=== PATIENT | female | born 1965 | race African-American/Black ===

== ENCOUNTER 2020-04-16 14:08 | Outpatient (REF) | payer MEDICAID, SELFPAY | END 2020-04-16 14:09 | disposition home or self-care (01) | LOC: HO.LAB 14:08 | PROVIDERS: Visit Provider Internal Medicine | DX: Z20.828 Contact with and (suspected) exposure to other viral communicable diseases (principal) | CPT/HCPCS: C9803; U0003 ==

== ENCOUNTER 2020-04-23 10:47 | Outpatient (REF) | payer MEDICAID, SELFPAY | END 2020-04-23 10:48 | disposition home or self-care (01) | LOC: HO.LAB 10:47 | PROVIDERS: Visit Provider Internal Medicine | DX: Z20.828 Contact with and (suspected) exposure to other viral communicable diseases (principal) | CPT/HCPCS: C9803; U0003 ==

== ENCOUNTER 2020-05-08 09:00 | Outpatient (REF) | payer MEDICAID, SELFPAY | END 2020-05-08 09:01 | disposition home or self-care (01) | LOC: HO.LAB 09:00 | PROVIDERS: Visit Provider Internal Medicine | DX: Z20.828 Contact with and (suspected) exposure to other viral communicable diseases (principal) | CPT/HCPCS: C9803; U0003 ==

== ENCOUNTER 2020-07-03 09:35 | Outpatient (REF) | payer MEDICAID, SELFPAY ==
--- NOTE | 2020-07-03 | MM_ITS ---
EXAMINATION: MM SCREENING DIGITAL BREAST TOMOSYNTHESIS, BILATERAL CLINICAL INFORMATION: Screening. Asymptomatic. The lifetime risk of breast cancer based on the Tyrer-Cuzick Model is 6%. COMPARISON: Mammography: 04/14/2018, 02/24/2017, 01/11/2016 TECHNIQUE: Digital breast tomosynthesis is performed in both the craniocaudal and mediolateral oblique views along with computer-aided detection (CAD). Synthesized 2D images are generated from the tomosynthesis. FINDINGS: There are scattered areas of fibroglandular density (ACR BI-RADS breast composition Category b). There are no significant masses, abnormal calcifications, or other abnormalities. Parenchymal pattern. No significant change from prior studies. MM/MM tomosynthesis screening BI IMPRESSION: No mammographic evidence of malignancy. ASSESSMENT: BI-RADS 1: Negative RECOMMENDATION: Routine annual mammography screening. This patient's information was entered into a reminder system with a target due date for their next mammogram.
== END 2020-07-03 09:36 | disposition home or self-care (01) ==
LOC: HO.MAMMO 09:35
PROVIDERS: Visit Provider Family Medicine
DX: Z12.31 Encounter for screening mammogram for malignant neoplasm of breast (principal)
CPT/HCPCS: 77063; 77067

== ENCOUNTER 2020-08-13 10:28 | Outpatient (REF) | payer MEDICAID, SELFPAY | END 2020-08-13 10:29 | disposition home or self-care (01) | LOC: HO.LAB 10:28 | PROVIDERS: Visit Provider Internal Medicine | DX: Z20.822 Contact with and (suspected) exposure to COVID-19 (principal) | CPT/HCPCS: 36415; C9803; U0003; U0005 ==

== ENCOUNTER 2021-05-29 13:30 | Outpatient (REF) | payer MEDICAID, SELFPAY | END 2021-05-29 13:31 | disposition home or self-care (01) | LOC: HO.LAB 13:30 | PROVIDERS: Visit Provider Internal Medicine | DX: Z20.822 Contact with and (suspected) exposure to COVID-19 (principal) | CPT/HCPCS: C9803; U0003; U0005 ==

== ENCOUNTER 2021-08-31 09:45 | Outpatient (REF) | payer MEDICAID, SELFPAY ==
--- NOTE | ~2021-08-31 | MM_ITS ---
EXAMINATION: MM SCREENING DIGITAL BREAST TOMOSYNTHESIS, BILATERAL CLINICAL INFORMATION: Screening. Asymptomatic. The lifetime risk of breast cancer based on the Tyrer-Cuzick Model is 10%. COMPARISON: Mammography: 07/03/2020, 04/14/2018, 02/24/2017 TECHNIQUE: Digital breast tomosynthesis is performed in both the craniocaudal and mediolateral oblique views along with computer-aided detection (CAD). Synthesized 2D images are generated from the tomosynthesis. FINDINGS: There are scattered areas of fibroglandular density (ACR BI-RADS breast composition Category b). There are no significant masses, abnormal calcifications, or other abnormalities. Parenchymal pattern is similar to prior studies. There is no developing density or architectural abnormality. The axilla and skin contours are unremarkable. No significant changes. MM/MM tomosynthesis screening BI IMPRESSION: No mammographic evidence of malignancy. ASSESSMENT: BI-RADS 1: Negative RECOMMENDATION: Routine annual mammography screening. This patient's information was entered into a reminder system with a target due date for their next mammogram.
== END 2021-08-31 09:46 | disposition home or self-care (01) ==
LOC: HO.MAMMO 09:45
PROVIDERS: Visit Provider Family Medicine
DX: Z12.31 Encounter for screening mammogram for malignant neoplasm of breast (principal)
CPT/HCPCS: 77063; 77067

== ENCOUNTER 2022-09-06 09:33 | Outpatient (REF) | payer MEDICAID, SELFPAY ==
--- NOTE | ~2022-09-06 | MM_ITS ---
EXAMINATION: MM SCREENING DIGITAL BREAST TOMOSYNTHESIS, BILATERAL CLINICAL INFORMATION: Screening. Asymptomatic. The lifetime risk of breast cancer based on the Tyrer-Cuzick Model is 12%. COMPARISON: Mammography: 08/31/2021, 07/03/2020, 04/14/2018 TECHNIQUE: Digital breast tomosynthesis is performed in both the craniocaudal and mediolateral oblique views along with computer-aided detection (CAD). Synthesized 2D images are generated from the tomosynthesis. FINDINGS: There are scattered areas of fibroglandular density (ACR BI-RADS breast composition Category b). There are no significant masses, abnormal calcifications, or other abnormalities. No architectural abnormality or developing density or significant change from prior studies. The skin contours are smooth. MM/MM tomosynthesis screening BI IMPRESSION: No mammographic evidence of malignancy. ASSESSMENT: BI-RADS 1: Negative RECOMMENDATION: Routine annual mammography screening. This patient's information was entered into a reminder system with a target due date for their next mammogram.
== END 2022-09-06 09:34 | disposition home or self-care (01) ==
LOC: HO.MAMMO 09:33
PROVIDERS: PCP Family Medicine; Visit Provider Family Medicine
DX: Z12.31 Encounter for screening mammogram for malignant neoplasm of breast (principal)
CPT/HCPCS: 77063; 77067

== ENCOUNTER 2023-04-10 13:54 | Outpatient (REF) | payer MEDICAID, SELFPAY ==
[2023-04-10 15:00] LABS: Influenza A PCR NEGATIVE (Negative); Influenza B PCR NEGATIVE (Negative); Resp Syncy Virus RNA Qual PCR NEGATIVE (Negative); SARS COV2 PCR INHOUSE NEGATIVE (Negative)
== END 2023-04-10 13:55 | disposition home or self-care (01) ==
LOC: HO.LAB 13:54
PROVIDERS: PCP Family Medicine; Visit Provider Internal Medicine
DX: Z11.52 Encounter for screening for COVID-19 (principal); R09.89 Other specified symptoms and signs involving the circulatory and respiratory systems
CPT/HCPCS: 0241U

== ENCOUNTER 2023-06-04 13:45 | Outpatient (REF) | payer MEDICAID, SELFPAY | END 2023-06-04 13:46 | disposition home or self-care (01) | LOC: HO.XRAY 13:45 | PROVIDERS: Absent Provider Family Medicine; PCP Family Medicine; Visit Provider Emergency Medicine | DX: M25.551 Pain in right hip (principal) | CPT/HCPCS: 73502 ==

== ENCOUNTER 2023-07-07 11:16 | Outpatient (AMB) | payer MEDICAID, SELFPAY ==
--- NOTE | 2023-07-07 11:19 | A.OFFVIS_ITS ---
Intake Intake Visit Reasons: Mass on Lt foot Intake Note: Patient is seen in office for evaluation and treatment of a left foot mass. Pt c/o: onset for years, lump above left foot was removed in the past, would like to have it surgically removed Ict Project Manager Required: Yes Ict Project Manager Language: Basketball Scout Name: Gaby ARDON Information Interpreted: non-clinical & clinical Conduit Reamer Operator: Conduit Reamer Operator Present Accompanied by: Self / Same As Patient Allergies lisinopril Allergy (Unknown, Verified 07/07/23 11:25) Cough Medication List - Last Reconciled 07/07/23 by Anil Moore MD albuterol sulfate 90 mcg/actuation (Ventolin HFA) 2 puffs inhalation Q4-6H PRN amlodipine 10 mg PO DAILY dapagliflozin propanediol (Farxiga) 5 mg PO DAILY furosemide 20 mg PO DAILY loratadine (Allergy Relief (loratadine)) 10 mg PO DAILY lorazepam 1 mg PO DAILY PRN metformin 500 mg PO DAILY metoprolol succinate ER 50 mg PO DAILY oxymetazoline 0.05% (Nasal Crawford (oxymetazoline)) 2 sprays intranasal Q12H PRN pravastatin 80 mg PO DAILY zolpidem 10 mg PO BEDTIME HPI HPI Comments 2 History of Present Illness0 Details 58-year-old female patient presenting wi th a skin lesion located on the left foot. The lesion has been present for many years and has gradually increased in size. She reports previously undergoing an excision in which the lesion was shaved off however it has subsequently returned in the exact same location. She denies any bleeding, discharge, pain or other symptoms associated with the lesion. She is requesting excision. [facility] Surgical History Hx of tubal ligation Family History Sister Cancer of unknown origin Social History Alcohol intake: current Alcohol intake frequency: holidays/special occasions only Patient Tobacco Use Status: Never used Tobacco Review of Systems Const All systems reviewed & are unremarkable except as noted in HPI and below Denies chills, Denies fever(s), Denies headache(s), Denies poor appetite and Denies weakness ENT Denies headache(s) Card Denies chest pain, Denies irregular heart rhythm, Denies palpitations and Denies dyspnea Resp Denies cough, Denies excessive phlegm production and Denies dyspnea GI Denies abdominal pain, Denies bloating, Denies change in bowel habits, Denies constipation, Denies heartburn, Denies diarrhea, Denies nausea and Denies vomiting Denies urinary frequency Musc Denies back pain, Denies muscle weakness and Denies numbness Skin/Breast Denies changing lesions and Denies unusual bruising Neuro Denies headache(s), Denies numbness, Denies paresthesias and Denies weakness Psych Denies anxiety and Denies depression Endo Denies palpitations Xavier/Lymph Denies lymphadenopathy Physical Exam Const General: cooperative and no acute distress Nutritional Appearance: well nourished Orientation/consciousness: patient oriented x3 Limitations: no limitations HEENT Head: Yes normocephalic and Yes atraumatic Ears: hearing grossly normal bilaterally Resp Effort & Inspection: normal respiratory effort, no audible wheezes, no cough and no respiratory distress Cardio Jugular venous distension: no JVD GI Inspection: Yes normal to inspection Skin Other: Warm, dry, no rash Left foot with a 0.6 cm by 0.7 cm raised and pedunculated lesion located on the top of the left foot a proximally over the 1st and 2nd metatarsals. There is no ulceration, pigmentation or tenderness associated with the lesion. Full body images: 2 1. Site of left foot skin lesion. 2. Neuro General: patient oriented x3 Extrem General: Yes no clubbing, cyanosis or edema Assessment & Plan Assessment & Plan (1) Skin lesion of foot: Comment: Left foot Code(s): L98.9 - Disorder of the skin and subcutaneous tissue, unspecified Plan 58-year-old female patient with a raised skin lesion of the left foot. I recommend excision of the lesion under local anesthesia. After discussion of the procedure, risks, and alternatives, she consents to the surgery. This will be performed in the office at her earliest convenience. Coding Level of Care Code New Pt Level 4 (20178) Diagnoses Skin lesion of foot L98.9
== END 2023-07-07 11:39 | disposition home or self-care (01) ==
PROVIDERS: PCP Family Medicine; Referring Provider Family Medicine; Visit Provider Surgery
DX: L98.9 Disorder of the skin and subcutaneous tissue, unspecified (principal)
CPT/HCPCS: 99204

== ENCOUNTER → 2023-07-07 11:16 | Outpatient (BNVA) | payer MEDICAID, SELFPAY | PROVIDERS: PCP Family Medicine; Referring Provider Family Medicine; Visit Provider Surgery | DX: L98.9 Disorder of the skin and subcutaneous tissue, unspecified (principal) | CPT/HCPCS: 99202 ==

== ENCOUNTER 2023-08-04 10:51 | Outpatient (AMB) | payer MEDICAID, SELFPAY ==
--- NOTE | 2023-08-04 10:58 | A.OFFVIS_ITS ---
Intake Vital Signs 08/04/23 11:02 Height 4 ft 11 in Weight 199 lb 2 oz BMI 40.2 BP 143/77 H Blood Pressure Location Lt brachial Position Sitting Pulse 65 Intake Visit Reasons: Exc mass on Lt foot Intake Note: Patient is seen in office for office procedure, excision of left foot mass. Pt c/o: denies any changes since last visit Cement Storage Worker Required: Yes Cement Storage Worker Language: Brief Writer Name: Gaby ARDON Information Interpreted: non-clinical & clinical Fiber Optic Central Office Installer: Fiber Optic Central Office Installer Present Accompanied by: Self / Same As Patient Allergies lisinopril Allergy (Unknown, Verified 08/04/23 11:13) Cough Medication List - Last Reconciled 08/04/23 by Anil Moore MD albuterol sulfate 90 mcg/actuation (Ventolin HFA) 2 puffs inhalation Q4-6H PRN amlodipine 10 mg PO DAILY dapagliflozin propanediol (Farxiga) 5 mg PO DAILY furosemide 20 mg PO DAILY loratadine (Allergy Relief (loratadine)) 10 mg PO DAILY lorazepam 1 mg PO DAILY PRN metformin 500 mg PO DAILY metoprolol succinate ER 50 mg PO DAILY oxymetazoline 0.05% (Nasal [place] (oxymetazoline)) 2 sprays intranasal Q12H PRN pravastatin 80 mg PO DAILY zolpidem 10 mg PO BEDTIME HPI HPI Comments History of Present Illness Details Patient returns today for excision of a left foot skin lesion. PFSH Surgical History Hx of tubal ligation Family History Sister Cancer of unknown origin Social History Alcohol intake: current Alcohol intake frequency: holidays/special occasions only Patient Tobacco Use Status: Never used Tobacco Physical Exam Vital Signs: Last Vital Signs Pulse 65 08/04/23 11:02 BP 143/77 H 08/04/23 11:02 BMI result Body Mass Index 40.2 Office Procedures Excision Details: Preoperative diagnosis: Skin lesion left foot Postoperative diagnosis: Skin lesion left foot Procedure: Excision of skin lesion left foot Surgeon: Anil Moore MD Eyeglass Frames Polisher: None Anesthesia: Lidocaine 1% with epinephrine Indications for procedure: Enlarging skin lesion left foot Operative findings: 0.75 cm skin lesion left foot Specimen: Skin lesion left foot Estimated blood loss: 0 mL Complications: None Procedure details: Patient was brought to the procedure room and placed in a supine position. The site of surgery was confirmed by the patient in the left foot. Local anesthesia was then infiltrated below the lesion. Elliptical incision was then performed using a 15 blade oriented longitudinally. Lesion was passed off the table and sent to pathology for further examination. Light pressure was held to maintain hemostasis. Skin was then closed using a 3-0 nylon suture. Sterile dressings consisting of 2 x 2 gauze and Tegaderm were then applied. The patient tolerated the procedure well. She was discharged to home in stable condition. 22431-Lmcypykg scalp/neck/hands/feet/genitalia 0.6cm-1cm Procedure code (CPT) selection complete Assessment & Plan Assessment & Plan (1) Skin lesion of foot: Comment: Left foot Code(s): L98.9 - Disorder of the skin and subcutaneous tissue, unspecified Plan 58-year-old female patient with a skin lesion of the left foot status post excision as an office procedure. She tolerated the procedure well and will return in 1 week for suture removal. Orders: Orders Surgical Today L98.9 - Disorder of the skin and subcutaneous tissue, unspecified Coding Level of Care Code Procedure Only Diagnoses Skin lesion of foot L98.9 CPT Codes Scalp/Neck/Hands/Feet/Genetalia - CPT: 42796-Ljkcnalw scalp/neck/hands/fe et/genitalia 0.6cm-1cm ([id number])
[2023-08-04 11:02] VITALS: BP 143/77; PULSE 65; BMI 40.2
== END 2023-08-04 11:20 | disposition home or self-care (01) ==
PROVIDERS: PCP Family Medicine; Visit Provider Surgery
DX: L98.9 Disorder of the skin and subcutaneous tissue, unspecified (principal)
CPT/HCPCS: 11421

== ENCOUNTER 2023-08-04 10:51 | Outpatient (REF) | payer MEDICAID, SELFPAY | END 2023-08-04 10:52 | disposition home or self-care (01) | LOC: HO.LNP 10:51 | PROVIDERS: PCP Family Medicine; Visit Provider Surgery | DX: L98.9 Disorder of the skin and subcutaneous tissue, unspecified (principal); Z79.899 Other long term (current) drug therapy | CPT/HCPCS: 11421; 88304 ==

== ENCOUNTER 2023-08-11 13:00 | Outpatient (AMB) | payer MEDICAID, SELFPAY ==
[2023-08-11 13:07] VITALS: BP 130/70; BMI 40.1
--- NOTE | 2023-08-11 13:07 | MHC.OFFVIS ---
Intake Vital Signs 08/11/23 13:07 Height 4 ft 11 in Weight 198 lb 6.656 oz BMI 40.1 BP 130/70 Blood Pressure Location Lt brachial Position Sitting Intake Visit Reasons: s/p Exc mass on Lt foot Intake Note: Patient is seen in office for post op assessment post excision of mass left foot. Pt c/o; denies any concerns, sutures removed at visit Mill Crane Operator Required: No Accompanied by: Self / Same As Patient Allergies lisinopril Allergy (Unknown, Verified 08/11/23 13:08) Cough HPI HPI Comments History of Present Illness Details Patient returns 1 week following excision of a lesion of the foot, left side. She tolerated the procedure well and denies any ongoing foot symptoms. Pathology revealed benign lesions. [facility] Surgical History Hx of tubal ligation Family History Sister Cancer of unknown origin Social History Alcohol intake: current Alcohol intake frequency: holidays/special occasions only Patient Tobacco Use Status: Never used Tobacco Physical Exam Vital Signs: Last Vital Signs BP 130/70 08/11/23 13:07 BMI result Body Mass Index 40.1 Extrem Other: Left foot wound is clean, dry and intact. The suture was removed and the wounds found to be well healed. Assessment & Plan Assessment & Plan (1) Skin lesion of foot: Comment: Left foot Code(s): L98.9 - Disorder of the skin and subcutaneous tissue, unspecified Plan 58-year-old female status post excision of a lesion of the left foot. The lesion was found to be benign on pathology. She tolerated the procedure well and her wounds are healing nicely. She should follow up as needed. Coding Level of Care Code Global (39627) Diagnoses Skin lesion of foot L98.9
== END 2023-08-11 13:09 | disposition home or self-care (01) ==
PROVIDERS: PCP Family Medicine; Visit Provider Surgery
DX: L98.9 Disorder of the skin and subcutaneous tissue, unspecified (principal)
CPT/HCPCS: 99024

== ENCOUNTER → 2023-08-11 13:00 | Outpatient (BNVA) | payer MEDICAID, SELFPAY | PROVIDERS: PCP Family Medicine; Visit Provider Surgery | DX: L98.9 Disorder of the skin and subcutaneous tissue, unspecified (principal) | CPT/HCPCS: 99212 ==

== ENCOUNTER 2023-08-12 10:57 | Outpatient (REF) | payer MEDICAID, SELFPAY ==
[2023-08-12 14:27] LABS: Creatinine Urine 81.25 mg/dL; Microalbumin Urine < 5.0 mg/L
[2023-08-12 14:39] LABS: Alanine Aminotransferase 17 U/L (0-31); Albumin Level 4.2 g/dL (3.5-5.0); Alkaline Phosphatase 56 U/L (39-117); Anion Gap 13 (12-20); Aspartate Amino Transferase 15 U/L (5-31); Bilirubin Total 0.5 mg/dL (0.0-1.0); Blood Urea Nitrogen 13 mg/dL (9-16); Calcium 9.1 mg/dL (8.4-10.2); Carbon Dioxide 28 mmol/L (22-29); Chloride 104 mmol/L (96-108); Cholesterol 195 mg/dL (<200); Estimated Glomerular Filt Rate > 60; Glucose Random 146 mg/dL (60-115); HDL Cholesterol 46 mg/dL (>40); LDL Cholesterol Calculated 119 mg/dL (<100); Potassium 4.1 mmol/L (3.3-5.1); Sodium 141 mmol/L (135-145); Total Protein 7.6 g/dL (6.5-8.0); Triglycerides 150 mg/dL (<150)
[2023-08-12 15:16] LABS: Folate 8.6 ng/mL (> or = 4.0); Vitamin B12 418 pg/mL (200-900)
[2023-08-12 18:44] LABS: Reflex LDLD? No
[2023-08-16 13:08] LABS: VITAMIN D (1,25 OH) D3 47 pg/mL; Vit D (1,25-Dihydroxy) Total 47 pg/mL (18-72); Vitamin D (1,25 OH) D2 <8 pg/mL
== END 2023-08-12 10:58 | disposition home or self-care (01) ==
LOC: HO.HHCL 10:57
PROVIDERS: Visit Provider Family Medicine
DX: E11.3293 Type 2 diabetes mellitus with mild nonproliferative diabetic retinopathy without macular edema, bilateral (principal); E56.9 Vitamin deficiency, unspecified
CPT/HCPCS: 36415; 80053; 80061; 82043; 82570; 82607; 82652; 82746; 84443

== ENCOUNTER 2023-09-14 16:55 | Outpatient (REF) | payer MEDICAID, SELFPAY ==
[2023-09-18 21:08] LABS: HPV mRNA E6/E7 rflx Not Detected (Not Detected)
== END 2023-09-14 16:56 | disposition home or self-care (01) ==
LOC: HO.LNP 16:55
PROVIDERS: Visit Provider Family Medicine
DX: Z01.419 Encounter for gynecological examination (general) (routine) without abnormal findings (principal); Z11.51 Encounter for screening for human papillomavirus (HPV)
CPT/HCPCS: 87624; 88142

== ENCOUNTER 2023-10-06 10:02 | Outpatient (REF) | payer MEDICAID, SELFPAY | END 2023-10-06 10:03 | disposition home or self-care (01) | LOC: HO.MAMMO 10:02 | PROVIDERS: PCP Family Medicine; Visit Provider Family Medicine | DX: Z12.31 Encounter for screening mammogram for malignant neoplasm of breast (principal) | CPT/HCPCS: 77063; 77067 ==

== ENCOUNTER → 2023-10-06 10:15 | Outpatient (BNV) | payer MEDICAID, SELFPAY | PROVIDERS: PCP Family Medicine; Visit Provider Radiology Diagnostic Radiology | DX: Z12.31 Encounter for screening mammogram for malignant neoplasm of breast (principal) | CPT/HCPCS: 77063; 77067 ==

== ENCOUNTER 2024-04-18 17:15 | Outpatient (REF) | payer MEDICAID, SELFPAY | END 2024-04-18 17:16 | disposition home or self-care (01) | LOC: HO.HHCLNP 17:15 | PROVIDERS: Visit Provider Nurse Practitioner Primary Care | DX: J02.9 Acute pharyngitis, unspecified (principal) | CPT/HCPCS: 87070 ==

== ENCOUNTER 2024-10-11 09:55 | Outpatient (REF) | payer MEDICAID, SELFPAY ==
--- OUTSIDE RECORDS SUMMARY | 2024-10-11 11:08 | XMS_ITS | Encounter Summary ---
Author Organization [email or web address] Address [address] [facility] 7t [place] [address] Care Team Providers Care Aircraft Electrician Name Role Phone Jade Ortega MD Primary Care Provider [phone] Lane Severino PharmD Unavailable [phone] Reason for Visit * Reason Comments Med Change Request Encounter Details Date Type Department Care Team (Late st Contact Info) Description 12/09/2023 Refill [facility] [address] [place], [place] [phone] Jade Ortega MD [address] [place], [place] [phone] Social History Tobacco Use Types Packs/Day Years Used Date Smoking Tobacco: Never Passive Smoke Exposure: Never Smokeless Tobacco: Never Alcohol Use Standard Drinks/Week Comments Yes 0 (1 standard drink = 0.6 oz pure alcohol) 2-3 alcoholic beverages occasionally at gatherings Alcohol Answer Date Recorded Frequency of Alcohol Consumption Not on file 12/09/2023 Average Number of Drinks Not on file 024 Frequency of Binge Drinking Not on file 08/2023 Score 0 12/09/2023 Depression Answer Date Recorded Patient Health Questionnaire-9 Score 0 06/16/2023 Patient Health Questionnaire-9 Score 0 06/16/2023 Last PHQ-9: Questionnaire Data Not on file 0 06/16/2023 Housing Stability Answer Date Recorded What is your housing situation today? I have yanni wiley 06/16/[address] you li ve. Do you have problems with any of the following? None of the above 06/16/2023 Food Insecurity Answer Date Recorded Within the past 12 months, y ou worried that your food would run out before you got money to buy more: Never True 06/16/2023 Within the past 12 months,th e food you bought just didn't last and you didn't have enough money to get more: Never True 02/2024 Transportation Answer Date Recorded In the past 12 months, has l ack of transportation kept you from medical appts, meetings, work or from getting things needed for daily living? No 06/16/2023 Utilities Answer Date Recorded In the past 12 months, has t he electric, gas, oil or water company threatened to shut off services in your home? No 06/16/2023 Depression Answer Date Recorded Patient Health Questionnaire-2 Score 0 06/16/2023 Comments Unknown Sex and Gender Information Value Date Recorded Sex Assigned at Female 04/07/2022 10:14 AM EDT Legal Sex Female 10:14 AM EDT Gender Identity Female 04/07/2022 10:14 AM EDT Sexual Orientation Choose not to disclose 2021 10:14 AM EDT documented as of this encounter Plan of Treatment Upcoming Encounters Date Type Department Care Team (Late st Contact Info) Description 10/19/2024 11:00 AM EDT Office Visit [facility] [address] [place] [phone] Jade Ortega MD [address] [place] [phone] documented as of this encounter Goals Goal Patient Goal Type Associated Problems Recent Progress Patient-Stated? Author Blood Pressure < 140/90 Blood Pressure 136/76( 025 9:33 AM EST) No Lane Severino, Gt documented as of this encounter Visit Diagnoses Not on filedocumented in this encounter Additional Health Concerns Assessment Noted Time PHQ-9 Depression Total Score: 0 06/16/19 24 3:18 PM EST documented as of this encounter Care Teams Aircraft Electrician Relationship Specialty Start Date End Date Jade Ortega MD [address] [place] [phone] PCP - General Family Medicine 05/20/12 Lane Severino, MaddyD [address] [place] [address] Pharmacist Internal Medicine 07/01/22 documented as of this encounter
--- OUTSIDE RECORDS SUMMARY | 2024-10-11 11:08 | XMS_ITS | Encounter Summary ---
Author Organization [employer] Address [address] [facility] 7t [place] [address] Care Team Providers Care Insurance Risk Analyst Name Role Phone Jade Ortega MD Primary Care Provider [phone] [address] Severino PharmD Unavailable [phone] Encounter Details Date Type Department Care Team (Late Contact Info) Description 04/14/2023 Orders Only [facility] [address] [place] [address] [phone] Jade Ortega MD [address] [place] [address] [phone] Social History Tobacco Use Types Packs/Day Years Used Date Smoking Tobacco: Never Smokeless Tobacco: Never Alcohol Use Standard Drinks/Week Comments Yes 0 (1 standard drink = 0.6 oz pure alcohol) 2-3 alcoholic beverages occasionally at gatherings Comments Unknown Sex and Gender Information Value [...] Description 10/19/2024 11:00 AM EDT Office Visit [facility] [address] [place] [address] [phone] Jade Ortega MD [address] [place] [address] [phone] documented as of this encounter Goals Goal Patient Goal Type Associated Problems Recent Progress Patient-Stated? Author Blood Pressure < 140/90 Blood Pressure 136/76( 025 9:33 AM EST) No Lane Severino, Gt documented as of this encounter Visit Diagnoses Not on filedocumented in this encounter Care Teams Insurance Risk Analyst Relationship Specialty Start Date End Date Jade Ortega MD [address] [place] [address] PCP - General Family Medicine 05/20/12 Lane Severino, PharmD [address] [place] [address] Pharmacist Internal Medicine 07/01/22 documented as of this encounter
--- OUTSIDE RECORDS SUMMARY | 2024-10-11 11:08 | XMS_ITS | Encounter Summary ---
Author Organization [employer] Address [address] [facility] 7t [place] [address] Care Team Providers Care Certified Control Systems Technician Name Role Phone Jade Ortega MD Primary Care Provider Lane Severino PharmD Unavailable [phone] Reason for Visit * Reason Comments Med Refill Encounter Details Date Type Department Care Team (Late st Contact Info) Description 06/26/2023 Refill [facility] [address] [place], [place] [phone] [address] Severino, PharmD [address] [place], [place] [phone] Essential hypertension Social History Tobacco Use Types Packs/Day Years Used Date Smoking Tobacco: Never Smokeless Tobacco: Never Alcohol Use Standard Drinks/Week Comments Yes 0 (1 standard drink = 0.6 oz pure alcohol) 2-3 alcoholic beverages occasionally at gatherings Depression Answer Date Recorded Patient Health Questionnaire-9 [...] Description 10/19/2024 11:00 AM EDT Office Visit [facility] [address] [place] [address] Jade Ortega MD [address] [place] [address] documented as of this encounter Goals Goal Patient Goal Type Associated Problems Recent Progress Patient-Stated? Author Blood Pressure < 140/90 Blood Pressure 136/76( 025 9:33 AM EST) No Lane Severino PharmD documented as of this encounter Visit Diagnoses Diagnosis Essential hypertension Unspecified essential hypertension documented in this encounter Additional Health Concerns Assessment Noted Time PHQ-9 Depression Total Score: 0 06/16/19 24 3:18 PM EST documented as of this encounter Care Teams Certified Control Systems Technician Relationship Specialty Start Date End Date Jade Ortega MD [address] [place] [phone] PCP - General Family Medicine 05/20/12 Lane Severino PharmD [address] [place] [phone] Pharmacist Internal Medicine 07/01/22 documented as of this encounter
--- OUTSIDE RECORDS SUMMARY | 2024-10-11 11:08 | XMS_ITS | Encounter Summary ---
Author Organization [employer] Address [address] [facility] [address] [place] [address] Care Team Providers Care Transportation Program Director Name Role Phone Jade Ortega MD Primary Care Provider [phone] Lane Severino PharmD Unavailable [phone] Encounter Details Date Type Department Care Team (Late st Contact Info) Description 12/10/2023 Orders Only [facility] [address] [place], [place] [phone] Jade Ortega MD [address] [place], [place] [phone] Social History Tobacco Use Types Packs/Day Years [...] Description 10/19/2024 11:00 AM EDT Office Visit [facility] [address] [place] [phone] Jade Ortega MD [address] [place] [phone] documented as of this encounter Goals Goal [...] documented as of this encounter Care Teams Transportation Program Director Relationship Specialty Start Date End Date Jade Ortega MD [address] [place] [address] [phone] PCP - General Family Medicine 05/20/12 Lane Severino PharmD [address] [place] [phone] Pharmacist Internal Medicine 07/01/22 documented as of this encounter
--- OUTSIDE RECORDS SUMMARY | 2024-10-11 11:08 | XMS_ITS | Encounter Summary ---
Author Organization [employer] Address [address] [facility] [address] [place] [address] Care Team Providers Care Outside Sales Engineer Name Role Phone Jade Ortega MD Primary Care Provider [phone] Lane Severino PharmD Unavailable [phone] Encounter Details Date Type Department Care Team (Late st Contact Info) Description 11/23/2023 Orders Only [facility] [address] [place], [place] [phone] Jade Ortega MD [address] [place], [place] [phone] Social History Tobacco Use Types Packs/Day Years [...] Description 10/19/2024 11:00 AM EDT Office Visit [facility] [address] [place] [phone] Jade Ortega MD [address] [place] [phone] documented as of this encounter Goals Goal [...] documented as of this encounter Care Teams Outside Sales Engineer Relationship Specialty Start Date End Date Jade Ortega MD [address] [place] [phone] PCP - General Family Medicine 05/20/12 Lane Severino PharmD [address] [place] [phone] Pharmacist Internal Medicine 07/01/22 documented as of this encounter
--- OUTSIDE RECORDS SUMMARY | 2024-10-11 11:08 | XMS_ITS | Encounter Summary ---
Author Organization [employer] Address [address] [facility] [address]t [place] [address] Care Team Providers Care Metal Moulder Name Role Phone Jade Ortega MD Primary Care Provider [phone] Lane Severino PharmD Unavailable Reason for Visit * Reason Comments Med Refill Encounter Details Date Type Department Care Team (Late st Contact Info) Description 07/05/2023 Refill [facility] [address] [place], [place] [phone] Jade Ortega MD [address] [place] [phone] Social History Tobacco Use Types Packs/Day Years [...] Description 10/19/2024 11:00 AM EDT Office Visit [facility] [address] [place] [address] Jade Ortega MD [address] [place] [phone] documented as of this encounter Goals Goal [...] documented as of this encounter Care Teams Metal Moulder Relationship Specialty Start Date End Date Jade Ortega MD [address] [place] [phone] PCP - General Family Medicine 05/20/12 Lane Severino, Gt [address] [place] [phone] Pharmacist Internal Medicine 07/01/22 documented as of this encounter
--- OUTSIDE RECORDS SUMMARY | 2024-10-11 11:08 | XMS_ITS | Encounter Summary ---
Author Organization [employer] Address [address] [place] [address] Care Team Providers Care Electric Truck Operator Name Role Phone Jade Ortega MD Primary Care Provider [phone] Lane Severino PharmD Unavailable [phone] Encounter Details Date Type Department Care Team (Late Contact Info) Description 04/14/2023 Orders Only [facility] MEDICINE [address] [place] [address] [phone] Jade Ortega MD [address] [place] [address] [phone] Social History Tobacco Use Types Packs/Day Years [...] Description 10/19/2024 11:00 AM EDT Office Visit [facility] MEDICINE [address] [place] [address] [phone] Jade Ortega MD [address] [place] [address] [phone] documented as of this encounter Goals Goal Patient Goal Type Associated Problems Recent Progress Patient-Stated? Author Blood Pressure < 140/90 Blood Pressure 136/76( 025 9:33 AM EST) No Lane Severino, Gt documented as of this encounter Visit Diagnoses Not on filedocumented in this encounter Care Teams Electric Truck Operator Relationship Specialty Start Date End Date Jade Ortega MD [address] [place] [address] PCP - General Family Medicine 05/20/12 Lane Severino, PharmD [address] [place] [address] Pharmacist Internal Medicine 07/01/22 documented as of this encounter
--- OUTSIDE RECORDS SUMMARY | 2024-10-11 11:09 | XMS_ITS | Clinical Summary ---
Author Organization [facility] Address [address] [place] [address] Care Team Providers Care Dolly Operator Name Role Phone Unavailable Primary Care Provider Unavailabl e Source Comments PLEASE NOTE, if this patient is a minor, it may be UNLAWFUL to discuss sensitive information that is contained in these records (such as FAMILY PLANNING, MENTAL HEALTH or SUBSTANCE ABUSE) with the minor patient's parent or other person without the patient's specific authorization.[facility] Immunizations Immunization Administration Dates Next Due Moderna COVID-19 Vaccine, re d cap blue label, 12+ Primary Series 10/10/2020,09/12/2020 Social History Tobacco Use Types Packs/Day Years Used Date Smoking Tobacco: Never Assessed Social Connections Answer Date Recorded Social Connections and Isolation 0 09/12/2020 Financial Resource Strain Answer Date R ecorded Financial Resource Strain 0 2020 Stress Answer Date Recorded Stress 0 09/12/2020 Physical Activity Answer Date Recorded Physical Activity 0 09/12/2020 Food Insecurity Answer Date Recorded Food 0 09/12/2020 Transportation Needs Answer Date Record ed Transportation 0 09/12/2020 Housing Stability Answer Date Recorded Housing 0 09/12/2020 Safety and Environment Answer Date Neville rded Safety 0 09/12/2020 Utilities Answer Date Recorded Utilities 0 09/12/2020 Employment Answer Date Recorded Employment 0 09/12/2020 Comments Unknown Sex and Gender Information Value Date Recorded Sex Assigned at Not on file Legal Sex Female 10:16 AM PDT Gender Identity Not on file Sexual Orientation Not on file Plan of Treatment Health Maintenance Due Date Last Done Comments Anxiety Screening 1964 Diabetes Screening 1964 HPV Screening 1964 Hepatitis C Screening 1964 Lipid Screening 1964 Pap + HPV 1964 Tobacco Screening 1964 HIV Screening 1979 Hypertension Screening (#1) 1982 Cervical Cancer Screening 1985 Pap Smear 1985 Breast Cancer Screening (Mammogram) 2004 CT Colonography 2009 Colonoscopy 2009 Colorectal Cancer Screening 2009 FIT/gFOBT 2009 Fecal DNA 2009 Flexible Sigmoidoscopy 2009 Imm-Zoster, Recombinant (1 of 2) 2014 Wui-LSRTB-30 ( season) 2024 10/10/2020, 09/12/2020 Imm-Influenza (#1) 2024 03/22/2020, 1 , 04/15/2018, Additional history exists Alcohol and Drug Screen 06/08/2024 Depression Annual Screen 06/08/2024 Imm-DTaP/Tdap/Td (2 - Td or Tdap) 08/24/2024 08/24/2014, 08/12/2006, 04/20/1995 Cervical Ablation/Cold-Knife Conization Discontinued Cervical Cryotherapy Discontinued Colposcopy Discontinued Endometrial Biopsy Discontinued Excision/Leep Discontinued HPV Genotyping Discontinued Imm-Hepatitis B Aged Out No longer el igible based on patient's age to complete this topic Vaginal Pap Discontinued Vulvoscopy Discontinued [facility]
--- OUTSIDE RECORDS SUMMARY | 2024-10-11 11:09 | XMS_ITS | Encounter Summary ---
Author Organization [employer] Address [address] [facility] [address] [place] [address] Care Team Providers Care Feed Research Technician Name Role Phone Jade Ortega MD Primary Care Provider [phone] Lane Severino PharmD Unavailable [phone] Reason for Visit * Reason Comments Med Refill Encounter Details Date Type Department Care Team (Late st Contact Info) Description 06/21/2024 Refill C [facility] [address] [place], [place] [phone] Jade Ortega MD [address] [place] [address] Essential hypertension Social History Tobacco Use Types [...] the past 12 months, has t he [employer] gas, oil or water company threatened to [...] Description 10/19/2024 11:00 AM EDT Office Visit [facility] MEDICINE [address] [place] [phone] Jade Ortega MD [address] [place] [phone] documented as of this encounter Goals Goal [...] documented as of this encounter Care Teams Feed Research Technician Relationship Specialty Start Date End Date Jade Ortega MD [address] [place] [phone] PCP - General Family Medicine 05/20/12 Lane Severino PharmD [address] [place] [address] Pharmacist Internal Medicine 07/01/22 documented as of this encounter
--- OUTSIDE RECORDS SUMMARY | 2024-10-11 11:09 | XMS_ITS | Encounter Summary ---
Author Organization [employer] Address [address] [place] [address] Care Team Providers Care Boom Tender Name Role Phone Jade Ortega MD Primary Care Provider [phone] [address] Severino PharmD Unavailable [phone] Encounter Details Date Type Department Care Team (Late st Contact Info) Description [address] [facility] MEDICINE [address] [place], [place] [phone] Jade Ortega MD [address] [place], [place] [phone] Social History Tobacco Use Types Packs/Day Years [...] Description 10/19/2024 11:00 AM EDT Office Visit [facility] MED[facility]INE [address] [place] [phone] Jade Ortega MD [address] [place] [phone] documented as of this encounter Goals Goal [...] documented as of this encounter Care Teams Boom Tender Relationship Specialty Start Date End Date Jade Ortega MD [address] [place] [address] [phone] PCP - General Family Medicine 05/20/12 Lane Severino PharmD [address] [place] [phone] Pharmacist Internal Medicine 07/01/22 documented as of this encounter
--- OUTSIDE RECORDS SUMMARY | 2024-10-11 11:09 | XMS_ITS | Clinical Summary ---
Author Organization [employer] Address [address] [facility] [address] [place] [address] Care Team Providers Care Community Development Officer Name Role Phone Jade Ortega MD Primary Care Provider [phone] [address] Severino PharmD Unavailable [phone] Allergies Active Allergy Reactions Criticality Noted Date Comments Lisinopril Cough 06/30/2019 Other reaction(s): choking, throat irritation (Tolerates Losartan) Valsartan Other Medium 03/18/2023 Throat irritation and shortness of breath (02/2023) Medications zolpidem (Ambien) 10 MG tablet Take 1 tablet by mouth at bed time. Active FreeStyle lancets 1 each by Other route 1 (one) time each day. Use as instructed Active glucose blood test strip 1 each by Other route if needed. Check bg once a day and as needed when feeling sick Active cholecalciferol (Vitamin D-3) 25 MCG (1000 UT) capsule take 1 by Oral route every day 020 Active FLUoxetine (PROzac) 10 MG capsule take 1 Capsule by oral route every day Active fluticasone (Flonase) 50 MCG/ACT nasal spray spray 1 spray by intranasal route every day in each nostril 022 Active LORazepam (Ativan) 1 MG tablet Take 1 tablet by mouth daily Active Alcohol Swabs (Alcohol Prep) 70 % pads Use daily as directed Active ibuprofen 600 MG tablet Take 1 tablet (600 mg) by mouth every 8 (eight) hours if needed for fever, mild pain or headaches. 30 tablet 1 023 Active gabapentin (Neurontin) 300 MG capsule TAKE 1 TABLET BY MOUTH AT BEDTIME 30 capsule 2 02/20/2 024 Active hydrocortisone 2.5 % cream Apply topically 2 times daily. 28 g 1 Active metFORMIN XR (Glucophage-XR) 750 MG 24 hr tablet Take 1 tablet (750 mg) by mouth with breakfast and with evening meal. Do not crush, chew, or split. 180 tablet 3 024 2024 Active fluticasone furoate (Arnuity Ellipta) 100 MCG/ACT inhaler Inhale 1 puff Once per day. Rinse mouth with water after use to reduce aftertaste and incidence of candidiasis. Do not swallow. 30 each 024 2024 Active metoprolol succinate XL (Toprol XL) 100 MG 24 hr tablet Take 1 tablet (100 mg) by mouth Once per day. Do not crush or chew. 90 tablet 3 Active loratadine (Claritin) 10 MG tabletIndicatio ns:Nasal congestion Take 1 tablet (10 mg) by mouth Once daily as needed for allergies. 90 tablet 1 024 Active acetaminophen (Tylenol) 500 MG tabletIndicatio ns:Sore throat take 2 tablet by oral route every 8 hours as needed for pain, Do not to exceed 6 tablets per 24hrs 60 tablet 1 024 Active furosemide (Lasix) 20 MG tabletIndicatio ns:Essential hypertension Take 1 tablet (20 mg) by mouth Once per day. 90 tablet 1 Active dapagliflozin (Farxiga) 5 MG Take one tablet by mouth in the morning 90 tablet 1 Active amLODIPine (Norvasc) 10 MG tablet TAKE 1 TABLET(10 MG) BY MOUTH IN THE MORNING 90 tablet 1 Active Tirzepatide (Mounjaro) 2.5 MG/0.5ML solution auto-injector Inject 2.5 mg under the skin 1 (one) time per week. 2 mL Active albuterol (Ventolin HFA) 108 (90 Base) MCG/ACT inhaler INHALE 2 PUFFS BY MOUTH EVERY 4 TO 6 HOURS NEEDED 18 g 1 Active rosuvastatin (Crestor) 10 MG tablet TAKE 1 TABLET(10 MG) BY MOUTH IN THE MORNING 90 tablet 025 Active Dulaglutide (Trulicity) 0.75 MG/0.5ML solution auto-injector Inject 0.75 mg under the skin every 14 (fourteen) days. INJECT ONE PEN (=0.75MG) SUBCUTANEOUSLY ONCE A WEEK DIRECTED 2 mL 1 025 Active rosuvastatin (Crestor) 10 MG tablet Take 1 tablet (10 mg) by mouth in the morning. 90 tablet 3 024 2024 Discontinued Trulicity 0.75 MG/0.5ML solution auto-injector INJECT ONE PEN (=0.75MG) SUBCUTANEOUSLY ONCE A WEEK DIRECTED 025 2024 Discontinued(R eorder (will not trigger notification to Pharmacy)) Active Problems Problem Noted Date Diagnosed Date Chronic left shoulder pain 12/12/2023 Assessment & Plan (12/12/2023 7:10 AM EDT): - acute on chronic left shoulder pain - evaluate with X-ray - patient is afraid of steroid injection and is hesitant to physical therapy - activity modifiation - take APAP or NSAIDs prn Right hip pain 06/19/2023 Assessment & Plan (06/19/2023 12:33 PM EST): - continue following with ortho - encouraged to stay physically active as tolerated Type 2 diabetes mellitus 09/24/2022 Assessment & Plan (07/20/2024 1:59 PM EST): - Hgb A1C 6.6% 07/20/24, 6.2% on 03/14/24, much improved - Continue working on lifestyle modifications - Continue checking glucose: Freestyle lite - Continue metformin ER 750 mg bid - Continue dapagliflozin 5 mg daily - Change dulaglutide (Trulicity) 0.75 mg weekly to Semaglutide 0.25 mg weekly per patient's request for greater weight loss benefit - Microalbumin test: 08/12/23 - Lipid profile: 08/12/23 - Diabetic eye exam: Eye and Lasik. November 2023 no diabetic retinopathy. Hx of mild diabetic nonproliferative retinopathy bilateral in 2022. - Foot exam: 06/16/23 - Follow up in 3-4 mo or sooner prn Assessment & Plan (03/21/2024 6:20 AM EDT): - Hgb A1C 6.2% on 03/14/24, much improved - Continue working on lifestyle modifications - Continue checking glucose: Freestyle lite - Continue metformin ER 750 mg bid - Continue dapagliflozin 5 mg daily - Change dulaglutide (Trulicity) 0.75 mg weekly to Semaglutide 0.25 mg weekly per patient's request for greater weight loss benefit - Microalbumin test: 08/12/23 - Lipid profile: 08/12/23 - Diabetic eye exam: Eye and Lasik. November 2023 no diabetic retinopathy. Hx of mild diabetic nonproliferative retinopathy bilateral in 2022. - Foot exam: 06/16/23 - Follow up in 3-4 mo or sooner prn Assessment & Plan (12/12/2023 7:12 AM EDT): - Hgb A1C 7.4% on 12/09/23, no change from last A1C - Continue working on lifestyle modifications - Continue checking glucose: Freestyle lite - Continue metformin ER 750 mg bid - Continue dapagliflozin 5 mg daily - Start GLP-1 RA - Will consider using combo drug dapagliflozin-metformin - Microalbumin test: 08/12/23 - Lipid profile: 08/12/23 - Diabetic eye exam: Eye and Lasik. November 2023 no diabetic retinopathy. Hx of mild diabetic nonproliferative retinopathy bilateral in 2022. - Foot exam: 06/16/23 - Follow up in 3-4 mo or sooner prn Assessment & Plan (09/14/2023 12:11 PM EDT): - Hgb A1C 7.3% on 09/14/23, no change from last A1C - Continue working on lifestyle modifications - Continue checking glucose: Freestyle lite - Increase metformin ER 1000 mg bid - Continue dapagliflozin 5 mg daily - Will consider using combo drug dapagliflozin-metformin - Microalbumin test: 08/12/23 - Lipid profile: 08/12/23 - Diabetic eye exam: Eye and Lasik. 07/29/22. Mild diabetic nonproliferative retinopathy b/l. - Foot exam: 06/16/23 - Follow up in 3-4 mo or sooner prn Assessment & Plan (06/19/2023 12:30 PM EST): - Hgb A1C 7.3% on 06/16/23, no change from last A1C - Continue working on lifestyle modifications - Continue checking glucose: Freestyle lite - Increase metformin ER 750 mg bid - Continue dapagliflozin 5 mg daily - Microalbumin test: 06/16/23 ordered - Lipid profile: 06/16/23 ordered - Diabetic eye exam: Eye and Lasik. 07/29/22. Mild diabetic nonproliferative retinopathy b/l. - Foot exam: 06/16/23 - Follow up in 3-4 mo or sooner prn Premature atrial contraction 01/31/2016 Assessment & Plan (07/24/2024 1:11 PM EST): - possible ELEN - patient has asthma and uses albuterol - last Holter monitor in 2014 showed frequent atrial ectopy. 3% - consider repeating Holter monitor Varicose veins of lower extremity 01/31/2016 Carpal tunnel syndrome 11/07/2015 Assessment & Plan (07/20/2024 2:01 PM EST): - continue gabapentin Assessment & Plan (06/19/2023 12:35 PM EST): - continue gabapentin Essential hypertension 04/23/2015 Assessment & Plan (07/20/2024 2:05 PM EST): -Goal BP < 140/90 per JNC-8 and < 130/80 per ACC/AHA guideline (Treatment threshold >= 130 ) -BP at goal in the clinic, but elevated at home and at [facility]. -Continue working on lifestyle modifications -Recommended self-monitoring BP. -Continue current medications: Metoprolol succinate 100 mg daily; amlodipine 10 mg daily; furosemide 20 mg daily -Treatment Hx: lisinopril and valsartan, discontinued due to side effect and patient's fear of recall product -Follow up in 3-6 mo, sooner if any problem arises Assessment & Plan (03/18/2024 5:25 PM EDT): -Goal BP < 140/90 per JNC-8 and < 130/80 per ACC/AHA guideline (Treatment threshold >= 130 ) -BP at goal in the clinic, but elevated at home and at [facility]. -Continue working on lifestyle modifications -Recommended self-monitoring BP. -Continue current medications: Metoprolol succinate 100 mg daily; amlodipine 10 mg daily; furosemide 20 mg daily -Treatment Hx: lisinopril and valsartan, discontinued due to side effect and patient's fear of recall product -Follow up in 3-6 mo, sooner if any problem arises Assessment & Plan (12/11/2023 2:47 PM EDT): -Goal BP < 140/90 per JNC-8 and < 130/80 per ACC/AHA guideline (Treatment threshold >= 130 ) -BP elevated at the clinic, but normal at home and at [facility]. Better today. -Continue working on lifestyle modifications -Recommended self-monitoring BP. -Continue current medications: Metoprolol succinate 75 mg daily; amlodipine 10 mg daily; furosemide 20 mg daily -Treatment Hx: lisinopril and valsartan, discontinued due to side effect and patient's fear of recall product -Follow up in 3-6 mo, sooner if any problem arises Assessment & Plan (09/14/2023 12:09 PM EDT): -Goal BP < 140/90 per JNC-8 and < 130/80 per ACC/AHA guideline (Treatment threshold >= 130 ) -BP elevated at the clinic, but normal at home and at [facility]. Better today. -Continue working on lifestyle modifications -Recommended self-monitoring BP. -Continue current medications: Metoprolol succinate 75 mg daily; amlodipine 10 mg daily; furosemide 20 mg daily -Treatment Hx: lisinopril and valsartan, discontinued due to side effect and patient's fear of recall product -Follow up in 3-6 mo, sooner if any problem arises Assessment & Plan (06/19/2023 12:27 PM EST): -Goal BP < 140/90 per JNC-8 and < 130/80 per ACC/AHA guideline (Treatment threshold >= 130 ) -BP elevated at the clinic, but normal at home and at [facility] -Continue working on lifestyle modifications -Recommended self-monitoring BP. -Continue current medications: Metoprolol succinate 75 mg daily; amlodipine 10 mg daily; furosemide 20 mg daily -Treatment Hx: lisinopril and valsartan, discontinued due to side effect and patient's fear of recall product -Follow up in 3-6 mo, sooner if any problem arises Moderate persistent asthma 04/23/2015 Assessment & Plan (07/24/2024 1:12 PM EST): - currently prescribed mometasone (Asmanex) 100 mcg one puff bid and albuterol HFA prn - treatment history: previously on fluticasone (Flovent) which was changed in 2022 - consider switching to budesonide / formoterol (Symbicort) or mometasone / formoterol (Dulera) Assessment & Plan (03/18/2024 5:21 PM EDT): - continue mometasone (Asmanex) 100 mcg one puff bid - continue albuterol HFA prn - treatment history: previously on fluticasone (Flovent) which was changed in 2022 Assessment & Plan (09/14/2023 12:07 PM EDT): - continue mometasone (Asmanex) 100 mcg one puff bid - continue albuterol HFA prn - treatment history: previously on fluticasone (Flovent) which was changed in 2022 Assessment & Plan (06/19/2023 12:24 PM EST): - previously on Flovent; will switch to mometasone (Asmanex) 100 mcg one puff bid - continue albuterol HFA prn Dyslipidemia 01/30/2014 Assessment & Plan (07/20/2024 2:02 PM EST): - last lipid profile: 08/12/23 - current medication: Pravastatin 80 mg at bedtime, moderate intensity statin. Switching to rosuvastatin since LDL is still > 70 - continue working on lifestyle modifications Assessment & Plan (03/18/2024 5:26 PM EDT): - last lipid profile: 08/12/23 - current medication: Pravastatin 80 mg at bedtime, moderate intensity statin. Switching to rosuvastatin since LDL is still > 70 - continue working on lifestyle modifications Assessment & Plan (12/11/2023 2:48 PM EDT): - last lipid profile: 08/12/23 - current medication: Pravastatin 80 mg at bedtime, moderate intensity statin. Switching to rosuvastatin since LDL is still > 70 - continue working on lifestyle modifications Assessment & Plan (09/14/2023 12:12 PM EDT): - last lipid profile: 08/12/23 - current medication: Pravastatin 80 mg at bedtime, moderate intensity statin. Switching to rosuvastatin since LDL is still > 70 - continue working on lifestyle modifications Assessment & Plan (06/19/2023 12:33 PM EST): - current medication: Pravastatin 80 mg at bedtime, moderate intensity statin - lipid profile ordered - continue working on lifestyle modifications Hyperuricemia 01/30/2014 Assessment & Plan (07/20/2024 2:02 PM EST): - Jan 2022 Uric acid level 7.2 - no gout attack Assessment & Plan (12/12/2023 7:14 AM EDT): - Jan 2022 Uric acid level 7.2 - no gout attack Hypokalemia 01/30/2014 Allergic rhinitis 04/04/2013 Mood disorder 04/04/2013 Assessment & Plan (07/20/2024 2:03 PM EST): - following with S provider: [facility] - Continue current medications: fluoxetine; lorazepam; zolpidem - Increase physical activity Assessment & Plan (12/11/2023 2:49 PM EDT): - following with S provider: [facility] - Continue current medications: fluoxetine; lorazepam; zolpidem - Increase physical activity Assessment & Plan (09/14/2023 12:12 PM EDT): - following with [facility] provider: [facility] - Continue current medications: fluoxetine; lorazepam; zolpidem - Increase physical activity Assessment & Plan (06/19/2023 12:34 PM EST): - following with [facility] provider: [facility] - Continue current medications: fluoxetine; lorazepam; zolpidem - Increase physical activity Obesity 04/04/2013 Assessment & Plan (07/24/2024 1:14 PM EST): Dietary Recommendations: Fruits, vegetables, whole grains, protein foods, and fat-free or low-fat dairy products are healthy choices. Eat different types of protein foods in your diet. This can include seafood, lean meats, poultry, beans, peas, lentils, nuts, seeds, soy products, and eggs. Limit foods and beverages higher in added sugars, saturated fat, and sodium. Exercise Recommendations: At least 150 minutes of moderate-intensity physical activity per week, or an equivalent combination of moderate- and vigorous-intensity activity - continue working on lifestyle modifications - started Trulicity, which was changed to Ozempic 03/14/24, then patient had a local reaction. Back to dulaglutide (Trulicity) currently. - waiting for PA for tirzepatide Assessment & Plan (03/18/2024 5:23 PM EDT): - continue working on lifestyle modifications - started Ozempic 03/14/24 Assessment & Plan (12/12/2023 7:12 AM EDT): - continue working on lifestyle modifications - she is now interested in GLP1-RA. Will start Assessment & Plan (09/14/2023 12:10 PM EDT): - continue working on lifestyle modifications - she is not interested in GLP1 agonist Anemia 02/27/2012 Sacroiliitis 02/27/2012 Resolved Problems Problem Noted Date Diagnosed Date Resolved Date Metabolic syndrome X 08/25/2013 024 Encounters Date Type Department Care Team Description 09/30/2024 Refill [facility] [address] [address] Jade Ortega MD 09/14/2024 Refill [facility] [address] [place] [address] Jade Ortega MD 09/14/2024 Refill [facility] [address] [place] [address] Jade Ortega MD 09/04/2024 Refill [facility] [address] [place] [address] Jade Ortega MD 08/23/2024 Telephone [facility] [address] [place] [address] Jade Ortega MD Prior Authorization 08/19/2024 Population Health Risk Score [facility] () [address] [id number] Provider, Population Health Generic 07/20/2024 9:30 AM EST Office Visit [facility] [address] [facility] [place] [address] Jade Ortega MD Essential hypertension (Primary Dx); Premature atrial contraction; Moderate persistent asthma without complication; Type 2 diabetes mellitus with both eyes affected by mild nonproliferative retinopathy without macular edema, without long-term current use of insulin ([facility]); Dyslipidemia; Hyperuricemia; Hypokalemia; Mood disorder ([facility]); Carpal tunnel syndrome, unspecified laterality; Dietary counseling; Exercise counseling; Class 2 severe obesity due to excess calories with serious comorbidity and body mass index (BMI) of 39.0 to 39.9 in adult (CMS/HCC) 07/20/2024 Travel 07/14/2024 Telephone [facility] [address] [place] [id number] Aileen Fountain MA chart prep from Last 3 Months Immunizations Name Administration Dates Next Due Hep B, adult 01/20/2011,10/16/2006,09/17/2006 Influenza injectable quadriv alent IIV4 with preservative 04/15/2018,03/09/2017,04/23/2015 Influenza injectable quadriv alent preservative free 03/22/2020,04/06/2019,05/22/2016 Influenza, IIV3, injectable 06/27/2014, 1 Influenza, Split (incl. ilya fied surface antigen) 04/04/2013,03/11/2012 Influenza, seasonal, injecta ble, preservative free 03/14/2024 MMR 08/13/2006,07/17/2004 Moderna Covid-19 Vaccine 12+ 06/17/2021,10/11/19 21,09/12/2020 Pneumococcal Conjugate PCV 20 06/16/2023 Pneumococcal Polysaccharide PPSV23 08/24/2014 TD (adult), 2 Lf tetanus tox oid, preservative free, adsorbed 08/12/2006,04/20/1995 Tdap 08/24/2014 Zoster, Recombinant 08/25/2022,02/11/2022 Family History Medical History Relation Name Comments Breast cancer Maternal Grandmother Diabetes type II Sister Hypertension Sister Relation Name Status Comments Maternal Grandmother Sister Social History Tobacco Use Types Packs/Day Years Used Date Smoking Tobacco: Never Passive Smoke Exposure: Never Smokeless Tobacco: Never Tobacco Cessation:Counseling Given: Not Answered Alcohol Use Standard Drinks/Week Comments Yes 0 (1 standard drink = 0.6 oz pure alcohol) 2-3 alcoholic beverages occasionally at gatherings Alcohol Answer Date Recorded Frequency of Alcohol Consumption Not on file 12/09/2023 Average Number of Drinks Not on file 024 Frequency of Binge Drinking Not on file 08/2023 Score 0 12/09/2023 Depression Answer Date Recorded Patient Health Questionnaire-9 Score 3 07/20/2024 Patient Health Questionnaire-9 Score 3 07/20/2024 Last PHQ-9: Questionnaire Data Not on file 0 07/20/2024 Housing Stability Answer Date Recorded What is your housing situation today? I have yanni wiley 07/20/[address] you li ve. Do you have problems with any of the following? None of the above 07/20/2024 Food Insecurity Answer Date Recorded Within the past 12 months, y ou worried that your food would run out before you got money to buy more: Never True 07/20/2024 Within the past 12 months,th e food you bought just didn't last and you didn't have enough money to get more: Never True 05/2025 Transportation Answer Date Recorded In the past 12 months, has l ack of transportation kept you from medical appts, meetings, work or from getting things needed for daily living? No 07/20/2024 Utilities Answer Date Recorded In the past 12 months, has t he electric, gas, oil or water company threatened to shut off services in your home? No 07/20/2024 Depression Answer Date Recorded Patient Health Questionnaire-2 Score 1 07/20/2024 Internet Access Answer Date Recorded Internet Access Q1 Yes 07/20/2024 Internet Access Q2 Not on file 07/20/2024 Comments Unknown Sex and Gender Information Value Date Recorded Sex Assigned at Female 04/07/2022 10:14 AM EDT Legal Sex Female 10:14 AM EDT Gender Identity Female 04/07/2022 10:14 AM EDT Sexual Orientation Choose not to disclose 2021 10:14 AM EDT Last Filed Vital Signs Vital Sign Reading Time Taken Comments Blood Pressure 136/76 07/20/2024 9:33 AM EST Pulse 69 07/20/2024 9:33 AM EST Temperature 36.1 ??C (96.9 ??F) 07/20/2024 9:33 AM ES T Respiratory Rate 18 07/20/2024 9:33 AM EST Oxygen Saturation 97% 04/18/2024 2:13 PM EST Inhaled Oxygen Concentration - - Weight 91.8 kg (202 lb 6.4 oz) 07/20/2024 9:33 A M EST Height 152.2 cm (4' 11.94 ) 03/14/2024 1:50 PM E DT Body Mass Index 39.61 03/14/2024 1:50 PM EDT Plan of Treatment Upcoming Encounters Date Type Department Care Team (Late st Contact Info) Description 10/19/2024 11:00 AM EDT Office Visit [facility] [address] [place] [address] Jade Ortega MD [address] [place] [address] Health Maintenance Due Date Last Done Comments CT Colonography 1964 FIT DNA/Cologuard 1964 FIT 1964 FOBT 1964 HIV Screening 1964 Sigmoidoscopy 1964 Hepatitis C Screening 1982 COVID-19 Vaccine ( season) 2024 06/17/2021, 10/10/2020, 09/12/2020 RSV Patients and Patients Aged 60 years or older (1 - Risk 60-74 years 1-dose series) 2024 Diabetes: Foot Exam 06/16/2024 06/16/2023, 06/16/2023, 06/16/2023, Additional history exists Diabetes: Urine Protein Screening 08/11/2024 08/12/2023, 01/13/2022 Lipid Panel 08/11/2024 08/12/2023, 08/01/2022, 03/15/2020 DTaP/Tdap/Td Vaccines (2 - Td or Tdap) 08/24/2024 08/24/2014, 08/12/2006, 04/20/1995 Eye Exam 11/29/2024 11/30/2023 Alcohol/Substance Use Screening 12/08/2024 12/09/2023 Diabetes: Hemoglobin A1C 01/17/2025 025, 03/14/2024, 09/14/2023, Additional history exists Colonoscopy 06/12/2025 06/12/2015 Colorectal Cancer Screening 06/12/2025 Depression Screening 07/20/2025 07/20/2024, 07/20/19 25 SDOH Screening 07/20/2025 07/20/2024 Tobacco Screening 07/24/2025 07/24/2024 Mammogram 10/05/2025 10/06/2023, 04/0 06/2022, 08/31/2021, Additional history exists Cervical Cancer Screening 09/13/2028 HPV/Cotest 09/13/2028 09/14/2023, 10/01/2017 Pap Smear 09/13/2028 09/14/2023 Hepatitis B Vaccines Completed 01/20/2011, 10/16/2006, 09/17/2006 Zoster Vaccines Completed 08/25/2022, 02/11/2022 Pneumococcal Vaccine: 50+ Years Completed 06/16/2023, 08/24/2014 Influenza Vaccine Completed 03/14/2024, , 04/06/2019, Additional history exists HIB Vaccines Aged Out No longer eligi ble based on patient's age to complete this topic HPV Vaccines Aged Out No longer eligi ble based on patient's age to complete this topic Hepatitis A Vaccines Aged Out No long er eligible based on patient's age to complete this topic IPV Vaccines Aged Out No longer eligi ble based on patient's age to complete this topic Meningococcal Vaccine Aged Out No toya jessica eligible based on patient's age to complete this topic RSV under 20 months Aged Out No longe r eligible based on patient's age to complete this topic Rotavirus Vaccines Aged Out No longer eligible based on patient's age to complete this topic Goals Goal Patient Goal Type Associated Problems Recent Progress Patient-Stated? Author Blood Pressure < 140/90 Blood Pressure 136/76( 025 9:33 AM EST) Lane Kiran, MaddyD Procedures Procedure Name Priority Date/Time Associated Diagnosis Comments POCT GLYCOSYLATED HEMOGLOBIN (HGB A1C) Routine 07/20/2024 9:38 AM EST Type 2 diabetes mellitus with both eyes affected by mild nonproliferative retinopathy without macular edema, without long-term current use of insulin ([facility]) POCT GLUCOSE Routine 07/20/2024 9:38 AM EST Type 2 diabetes mellitus with both eyes affected by mild nonproliferative retinopathy without macular edema, without long-term current use of insulin ([facility]) HM DIABETES EYE EXAM Routine 11/30/2023 BI MAMMOGRAM SCREENING TOMOSYNTHESIS BILATERAL Routine 10/06/2023 10:24 AM EDT HPV MRNA E6/E7 REFLEX TO HPV 16, 18/45 Routine 09/14/2023 1:36 PM EDT Encounter for well woman exam with routine gynecological exam PAP SMEAR Routine 09/14/2023 1:36 PM EDT Encounter for well woman exam with routine gynecological exam LIPID PANEL WITH REFLEX TO DIRECT LDL Routine 08/12/2023 10:59 AM EST Type 2 diabetes mellitus with both eyes affected by mild nonproliferative retinopathy without macular edema, without long-term current use of insulin ([facility]) ALBUMIN, RANDOM URINE W/CREATININE Routine 08/12/2023 10:56 AM EST Type 2 diabetes mellitus with both eyes affected by mild nonproliferative retinopathy without macular edema, without long-term current use of insulin ([facility]) COLONOSCOPY Routine 06/12/2015 from Last 3 Months or Most Recently Relevant to Health Maintenance Results * (ABNORMAL) POCT glycosylated hemoglobin (Hgb A1c) (07/20/2024 9:38 AM EST) Hemoglobin A1C 6.6(A) 4.0 - 6.0 % QC Media Lot # [id number] Lot# Expiration Date Blood Capillary blood specimen / Unknown 07/20/2024 9:38 AM EST us Jade Ortega MD POINT OF CARE TEST ENTER/EDIT OR DERABLES Final Result * POCT glucose manually resulted (07/20/2024 9:38 AM EST) Glucose Blood, POC 136 60 - 200 mg/dL QC Media Lot # [id number] Lot# Expiration Date Blood Capillary blood specimen / Unknown 07/20/2024 9:38 AM EST us Jade Ortega MD POINT OF CARE TEST ENTER/EDIT OR DERABLES Final Result * Diabetes Eye Exam (11/30/2023) Eye Exam Normal Normal Kun Tan MD HEALTH MAINTENANCE Final Result * BI Mammogram Screening Tomosynthesis Bilateral (10/06/2023 10:24 AM EDT) Anatomical Region Laterality Modality Breast Bilateral Mammography 10/06/2023 10:2 4 AM EDT Narrative 11/02/2023 12:05 PM EDT ? [facility] ? [address] ?[place] [address] ? Mammography Report ? Signed ? Patient: Rasta,Khushbu ?MR#: [id number] ?? [id number] ? : 1965 ?Acct:[id number] ? Age/Sex: 58 / F ?ADM Date: 10/06/23 ? Loc: HO.MAMMO ? Attending Dr: Jade Ortega MD ? Ordering Physician: Jade Ortega MD ?Results: 1Negative ? Date of Service: 10/06/23 ?Follow Up: 1 Year From Orig ?? inal Mammogram ? Procedure(s): MM tomosynthesis screening BI ?? Accession Number(s): [id number] ? cc: Jade Ortega MD ? EXAMINATION: ?? MM SCREENING DIGITAL BREAST TOMOSYNTHESIS, BILATERAL ? CLINICAL INFORMATION: ? Screening. Asymptomatic. ? COMPARISON: ?? Mammography: This study is compared with prior exams dating back to ?? 2017. ? TECHNIQUE: ?? Digital breast tomosynthesis is performed in both the craniocaudal and ?? mediolateral oblique views along with computer-aided detection (CAD). ?? Synthesized 2D images are generated from the tomosynthesis. ? FINDINGS: ?? There are scattered areas of fibroglandular density (ACR BI-RADS breast ?? composition Category b). ? There are no significant masses, abnormal calcifications, or other ?? abnormalities. ? MM/MM tomosynthesis screening BI ?? IMPRESSION: ?? No mammographic evidence of malignancy. ? ASSESSMENT: ? BI-RADS BI-RADS 1 - Negative ? RECOMMENDATION: ?? Routine annual mammography screening. ? 1 year F/U ? This examination should not preclude the clinical evaluation of a ?? suspicious palpable abnormality. ? This patient's information was entered into a reminder system with a ?? target due date for their next mammogram. ? Dictated By: ?Sally Myers MD ? Signed By: ?<Electronically signed by Sally Myers MD in OV> ? 11/02/23 1202 ? DD/ 1024 ? TD/TT: ? Technical Communication Teacher: ? Procedure Note Donotuseinterpreter, Image - 11/02/2023 [facility] [address] [place] [address] Mammography Report Signed Patient: Khushbu MagdalenoMR#: [id number] : 1965Acct:[id number] Age/Sex: 58 / FADM Date: 10/06/23 Loc: [facility] Attending Dr: Jade Ortega MD Ordering Physician: Jade Ortega MDResults: 1Negative Date of Service: 10/06/23Follow Up: 1 Year From Orig ina Mammogram Procedure(s): MM tomosynthesis screening BI Accession Number(s): [id number] cc: Jade Ortega MD EXAMINATION: MM SCREENING DIGITAL BREAST TOMOSYNTHESIS, BILATERAL CLINICAL INFORMATION: Screening. Asymptomatic. COMPARISON: Mammography: This study is compared with prior exams dating back to 2017. TECHNIQUE: Digital breast tomosynthesis is performed in both the craniocaudal and mediolateral oblique views along with computer-aided detection (CAD). Synthesized 2D images are generated from the tomosynthesis. FINDINGS: There are scattered areas of fibroglandular density (ACR BI-RADS breast composition Category b). There are no significant masses, abnormal calcifications, or other abnormalities. MM/MM tomosynthesis screening BI IMPRESSION: No mammographic evidence of malignancy. ASSESSMENT: BI-RADS BI-RADS 1 - Negative RECOMMENDATION: Routine annual mammography screening. 1 year F/U This examination should not preclude the clinical evaluation of a suspicious palpable abnormality. This patient's information was entered into a reminder system with a target due date for their next mammogram. Dictated By: Sally Myers MD Signed By: <Electronically signed by Sally Myers MD in OV> 11/02/23 1202 DD/ 1024 TD/TT: Technical Communication Teacher: Jade Ortega MD IMG BI PROCEDURES Final Result * HPV mRNA E6/E7 w/Reflex to HPV Genotypes 16, 18/45 (09/14/2023 1:36 PM EDT) HPV nRNA E6/E7 Not Detected Not Detected [facility] Comment:Methodology: Transcr iption-Mediated AmplificationThis assay detects E6/E7 viral messenger RNA (mRNA) from 14high-risk HPV types (16,18,31,33,35,39,45,51,52,56,58,59,66,68).Cervical sources are required for HPV testing.If a vaginal source from a patient who has had atotal hysterectomy with removal of cervix wassubmitted, please contact the testing laboratoryfor alternative testing options.For additional information, please refer tohttp://education.Biogazelle/faq/PCS236z6(This link if provided for information/educational purposes only.)THIS TEST WAS PERFORMED AT:[facility] [place] [id number] MALAVE MD HPV mRNA E6/E7 [facility] HPV 16 RNA [facility] HPV 18/45 RNA [facility] 09/14/2023 1:36 PM EDT 09/15/2023 2:00 PM EDT Jade Ortega MD LAB CYTOLOGY ORDERABLES Final Re sult [facility] [address] [place] [address] [phone] * Pap Smear (09/14/2023 1:36 PM EDT) Swab 09/14/2023 1:36 PM EDT 09/15/2023 2:00 PM EDT Narrative [facility] - 09/28/2023 5:12 PM EDT ----- ------- Name: Khushbu Magdaleno ?Age/Sex: 58/F ? : 1965 Unit#: [id number] ?? Attend Dr: Jade Ortega MD ?Re09/14/23 ?Status: DEP REF ? Location: HO.LNP ?Disch: ? ----- ------- SPEC : [id number] ? RECD: 09/15/23-1400 ? STATUS: ??SOUT ? REQ NUM: [id number] ? JOY: 09/14/23 ? SUBM DR: Jade Ortega MD ? ENTERED: ??09/15/23 ?SP TYPE: Pap Smr ?OTHR : ? ORDERED: ??Pap Smear, PAP path review ? Interpretation ?? General Category: ? Negative for intraepithelial lesion/malignancy. ?? Adequacy: ? Endocervical component present. ?? Interpretation: ? Reactive cellular changes. ? HPV mRNA E6/E7: ?Not Detected ? This assay detects E6/E7 viral messenger RNA (mRNA) from 14 high-risk HPV types (16, 18, ?? 31, 33, 35, 39, 45, 51, 52, 56, 58, 59, 66, 68) ? HPV testing performed by [facility], [place], [place]. ??See reference laboratory ?? portion of the EMR for entire report. ?Clinical Information LMP: Postmenopausal Previous PAP test: Unknown date, WNL ? Material Received ?? ThinPrep-Vaginal/Cervical ----- ------- Signed (signature on file) [place] 09/28/23 1712 ? ----- ------- ? END OF REPORT ? us Jade Ortega MD LAB CYTOLOGY ORDERABLES Final Re sult [facility] [address] [place] [phone] * (ABNORMAL) Lipid Panel with Reflex to Direct LDL (08/12/2023 10:59 AM EST) Triglycerides 150(H) <150 mg/dL [facility] Comment:Desirable Triglyceri de: less than 150 mg/dLBorderline High Triglyceride 150-199 mg/dLHigh Triglyceride: 200-499 mg/dLVery High Triglyceride: greater than or equal to 5OO mg/dL Cholesterol 195 <200 mg/dL [facility] Comment:Desirable Cholestero l: less than 200 mg/dLBorderline High Cholesterol: 200-239 mg/dLHigh Cholesterol: greater than 239 mg/dL LDL Cholesterol Calculated 119(H) <100 mg/dL [facility] Comment:Desirable LDL: less than 100 mg/dLNear Optimal/Above Optimal LDL: 110- 129 mg/dLBorderline High LDL: 130-159 mg/dLHigh LDL: 160-189 mg/dLVery High LDL: greater than or equal to 190 mg/dL HDL Cholesterol 46 >40 mg/dL [facility] Comment:Desirable HDL: great er than 40 mg/dL Note: This HDL assay may give artificially low results in patients with liver disease. Blood 08/12/2023 10:5 9 AM EST 08/12/2023 1:07 PM EST Jade Ortega MD LAB BLOOD ORDERABLES Final Resul t Performing Organization Address [facility] Co de Phone Number [facility] [address] [place] [phone] * Albumin, Random Urine W/Creatinine (08/12/2023 10:56 AM EST) Creatinine, Urine 81.25 mg/dL [facility] Microalbumin Urine <5.0 mg/L [facility] Microalbum Creatinine Ratio Ur TNP <30 ug/mg cr [facility] Comment:Unable to calculate albumin/creatinine ratio due to lowmicroalbumin or creatinine result. Urine 08/12/2023 10:5 6 AM EST 08/12/2023 12:56 PM EST Jade Ortega MD LAB URINE ORDERABLES Final Resul t Performing Organization Address [facility] Co de Phone Number [facility] [address] [place] [phone] * Hm Colonoscopy (06/12/2015) Colonoscopy Normal Normal Historical Provider HEALTH MAINTENANCE Final Result from Last 3 Months or Most Recently Relevant to Health Maintenance [facility] Care Teams Community Development Officer Relationship Specialty Start Date End Date Jade Ortega MD [address] [place] [address] PCP - General Family Medicine 05/20/12 Lane Severino, MaddyD [address] [place] [address] Pharmacist Internal Medicine 07/01/22
--- OUTSIDE RECORDS SUMMARY | 2024-10-11 11:09 | XMS_ITS | Encounter Summary ---
Author Organization [employer] Address [address] [facility] 7t [place] [address] Care Team Providers Care High School Math Tutor Name Role Phone Jade Ortega MD Primary Care Provider [phone] Lane Severino PharmD Unavailable [phone] Encounter Details Date Type Department Care Team (Late st Contact Info) Description 05/14/2022 Abstract [facility] [address] [place] [phone] ProviderKun MD Social History Tobacco Use Types Packs/Day Years Used Date Smoking Tobacco: Never Assessed Comments Unknown Sex and Gender Information Value [...] 11:00 AM EDT Office Visit [facility] [address] [place] [phone] Jade Ortega MD [address] [place] [address] documented as of this encounter Visit Diagnoses Not on filedocumented in this encounter Care Teams High School Math Tutor Relationship Specialty Start Date End Date Jade Ortega MD [address] [place] [address] PCP - General Family Medicine 05/20/12 Lane Severino, PharmD [address] [place] [address] Pharmacist Internal Medicine 07/01/22 documented as of this encounter
--- OUTSIDE RECORDS SUMMARY | 2024-10-11 11:09 | XMS_ITS | Encounter Summary ---
Author Organization [employer] Address [address] [facility] 7t [place] [address] Care Team Providers Care Mail Manager Name Role Phone Jade Ortega MD Primary Care Provider [phone] Lane Severino PharmD Unavailable [phone] Encounter Details Date Type Department Care Team (Late Contact Info) Description 08/18/2022 Abstract [facility] MEDICINE [address] [place] [address] [phone] Jade Ortega MD [address] [place] [address] [phone] Social History Tobacco Use Types Packs/Day Years [...] Encounters Date Type Department Care Team (Late Contact Info) Description 10/19/2024 11:00 AM EDT Office Visit [facility] [address] [place] [address] [phone] Jade Ortega MD [address] [place] [address] [phone] documented as of this encounter Goals Goal Patient Goal Type Associated Problems Recent Progress Patient-Stated? Author Blood Pressure < 140/90 Blood Pressure 136/76( 025 9:33 AM EST) No Lane Severino, Gt documented as of this encounter Visit Diagnoses Not on filedocumented in this encounter Care Teams Mail Manager Relationship Specialty Start Date End Date Jade Ortega MD [address] [place] [address] PCP - General Family Medicine 05/20/12 Lane Severino, PharmD [address] [place] [address] Pharmacist Internal Medicine 07/01/22 documented as of this encounter
--- OUTSIDE RECORDS SUMMARY | 2024-10-11 11:09 | XMS_ITS | Encounter Summary ---
Author Organization [employer] Address [address] [facility] [address] 7t [place] [address] Care Team Providers Care Android Developer Name Role Phone Jade Ortega MD Primary Care Provider [phone] Lane Severino PharmD Unavailable [phone] Reason for Visit * Reason Comments Med Refill Encounter Details Date Type Department Care Team (Late st Contact Info) Description 09/27/2023 Refill [facility] [address] [place], [place] [phone] Aishwarya Almeida FNP [address] [place] [address] Social History Tobacco Use Types Packs/Day Years [...] Description 10/19/2024 11:00 AM EDT Office Visit [facility] [address] [place] [address] Jade Ortega MD [address] [place] [address] documented as of this encounter Goals Goal [...] documented as of this encounter Care Teams Android Developer Relationship Specialty Start Date End Date Jade Ortega MD [address] [place] [phone] PCP - General Family Medicine 05/20/12 Lane Severino, Gt [address] [place] [address] Pharmacist Internal Medicine 07/01/22 documented as of this encounter
--- OUTSIDE RECORDS SUMMARY | 2024-10-11 11:09 | XMS_ITS | Encounter Summary ---
Author Organization [employer] Address [address] [facility] 7t [place] [address] Care Team Providers Care Vat Packer Name Role Phone Jade Ortega MD Primary Care Provider [phone] Lane Severino PharmD Unavailable [phone] Reason for Visit * Reason Onset Date Comments Appointment Request 09/24/2022 Encounter Details Date Type Department Care Team (Late st Contact Info) Description 09/24/2022 Telephone [facility] [address] [place], [place] [phone] Jade Ortega MD [address] [place], [place] [phone] Appointment Request Social History Tobacco Use Types Packs/Day Years [...] not to disclose 2021 10:14 AM EDT COVID-19 Exposure Response Date Recorded In the last 10 days, have yo u been in contact with someone who was confirmed or suspected to have Coronavirus/COVID-19? No / Unsure 08/25/2022 10:32 AM EDT documented as of this encounter Miscellaneous Notes * Telephone Encounter - Isabela John - 09/24/2022 8:35 AM EDT Tc from patient requesting to r/s 09/24/22 pap smear/pelvic exam appt. Details: PAP documented in this encounter Plan of Treatment Upcoming Encounters Date Type Department Care Team (Late st Contact Info) Description 10/19/2024 11:00 AM EDT Office Visit [facility] [address] [place] [address] Jade Ortega MD [address] [place] [address] documented as of this encounter Goals Goal Patient Goal Type Associated Problems Recent Progress Patient-Stated? Author Blood Pressure < 140/90 Blood Pressure 136/76( 025 9:33 AM EST) No Lane Severino, Gt documented as of this encounter Visit Diagnoses Not on filedocumented in this encounter Care Teams Vat Packer Relationship Specialty Start Date End Date Jade Ortega MD [address] [place] [address] PCP - General Family Medicine 05/20/12 Lane Severino, PharmD [address] [place] [address] Pharmacist Internal Medicine 07/01/22 documented as of this encounter
--- OUTSIDE RECORDS SUMMARY | 2024-10-11 11:09 | XMS_ITS | Encounter Summary ---
Author Organization [employer] Address [address] [facility] 7t [place] [address] Care Team Providers Care Street Contractor Name Role Phone Jade Ortega MD Primary Care Provider [phone] Lane Severino PharmD Unavailable [phone] Reason for Visit * Reason Comments Med Refill Encounter Details Date Type Department Care Team (Late st Contact Info) Description 09/30/2024 Refill [facility] [address] [place], [place] [phone] Jade Ortega MD [address] [place], [place] [phone] Social History Tobacco Use Types Packs/Day Years [...] Description 10/19/2024 11:00 AM EDT Office Visit [facility] [address] [place] [phone] Jade Ortega MD [address] [place] [address] documented as of this encounter Goals Goal Patient Goal Type Associated Problems Recent Progress Patient-Stated? Author Blood Pressure < 140/90 Blood Pressure 136/76( 025 9:33 AM EST) No Lane Severino, PharmD documented as of this encounter Visit Diagnoses Not on filedocumented in this encounter Additional Health Concerns Assessment Noted Time PHQ-9 Depression Total Score: 3 07/20/19 25 9:30 AM EST documented as of this encounter Care Teams Street Contractor Relationship Specialty Start Date End Date Jade Ortega MD [address] [place] [address] PCP - General Family Medicine 05/20/12 Lane Severino, PharmD [address] [place] [phone] Pharmacist Internal Medicine 07/01/22 documented as of this encounter
--- OUTSIDE RECORDS SUMMARY | 2024-10-11 11:09 | XMS_ITS | Encounter Summary ---
Author Organization [employer] Address [address] [facility] [address] [place] [address] Care Team Providers Care Printing Machinist Name Role Phone Jade Ortega MD Primary Care Provider [phone] Lane Severino PharmD Unavailable [phone] Reason for Visit * Reason Comments Med Refill Encounter Details Date Type Department Care Team (Late st Contact Info) Description 05/27/2024 Refill [facility] [address] [place], [place] [phone] Mary Terry, ANP [address] [place], [place] [phone] Sore throat Social History Tobacco Use Types Packs/Day Years [...] the past 12 months, has t he [employer], gas, oil or water company threatened to [...] Description 10/19/2024 11:00 AM EDT Office Visit [facility] [address] [place] [phone] Jade Ortega MD [address] [place] [address] documented as of this encounter Goals Goal Patient Goal Type Associated Problems Recent Progress Patient-Stated? Author Blood Pressure < 140/90 Blood Pressure 136/76( 025 9:33 AM EST) No Lane Severino PharmD documented as of this encounter Visit Diagnoses Diagnosis Sore throat Acute pharyngitis documented in this encounter Additional Health Concerns Assessment Noted Time PHQ-9 Depression Total Score: 0 06/16/19 24 3:18 PM EST documented as of this encounter Care Teams Printing Machinist Relationship Specialty Start Date End Date Jade Ortega MD [address] [place] [address] PCP - General Family Medicine 05/20/12 Lane Severino PharmD [address] [place] [address] Pharmacist Internal Medicine 07/01/22 documented as of this encounter
--- OUTSIDE RECORDS SUMMARY | 2024-10-11 11:09 | XMS_ITS | Encounter Summary ---
Author Organization [employer] Address [address] [facility] 7t [place] [address] Care Team Providers Care District Sales Leader Name Role Phone Jade Ortega MD Primary Care Provider [phone] Lane Severino PharmD Unavailable [phone] Reason for Visit * Reason Comments Med Refill Encounter Details Date Type Department Care Team (Late st Contact Info) Description 06/01/2024 Refill [facility] [address] [place], [place] [phone] [address] Severino, PharmD [address] [place], [place] [phone] Essential hypertension Social History Tobacco Use Types [...] the past 12 months, has t he [employer], gas, oil or water company threatened to [...] Office Visit [facility]ICINE [address] [place] [phone] Jade Ortega MD [address] [place] [address] documented as of this encounter Goals Goal [...] documented as of this encounter Care Teams District Sales Leader Relationship Specialty Start Date End Date Jade Ortega MD [address] [place] [phone] PCP - General Family Medicine 05/20/12 Lane Severino, MaddyD [address] [place] [phone] Pharmacist Internal Medicine 07/01/22 documented as of this encounter
--- OUTSIDE RECORDS SUMMARY | 2024-10-11 11:09 | XMS_ITS | Encounter Summary ---
Author Organization [employer] Address [address] [facility] 7t h Floor [place] [phone] Care Team Providers Care Glazing Department Supervisor Name Role Phone Jade Ortega MD Primary Care Provider [phone] Lane Severino PharmD Unavailable [phone] Reason for Visit * Reason Comments Med Refill Encounter Details Date Type Department Care Team (Late st Contact Info) Description 10/30/2023 Refill [facility] [address] [place], [place] [phone] [address] Severino, PharmD [address] [place], [place] [phone] Essential hypertension Social History Tobacco Use Types [...] Description 10/19/2024 11:00 AM EDT Office Visit [facility] [address] [place] [address] Jade Ortega MD [address] [place] [address] documented as of this encounter Goals Goal [...] documented as of this encounter Care Teams Glazing Department Supervisor Relationship Specialty Start Date End Date Jade Ortega MD [address] [place] [phone] PCP - General Family Medicine 05/20/12 Lane Severino, Gt [address] [place] [phone] Pharmacist Internal Medicine 07/01/22 documented as of this encounter
--- OUTSIDE RECORDS SUMMARY | 2024-10-11 11:09 | XMS_ITS | Encounter Summary ---
Author Organization [employer] Address [address] [place] [address] Care Team Providers Care Mail Sorting Supervisor Name Role Phone Jade Ortega MD Primary Care Provider [phone] Lane Severino PharmD Unavailable [phone] Encounter Details Date Type Department Care Team (Late st Contact Info) Description 09/16/2023 Orders Only [facility] [address] [place], [place] [phone] Jade Ortega MD [address] [place], [place] [phone] Social History Tobacco Use Types Packs/Day Years [...] Description 10/19/2024 11:00 AM EDT Office Visit [facility] [address] [place] [phone] Jade Ortega MD [address] [place] [address] documented as of this encounter Goals Goal Patient Goal Type Associated Problems Recent Progress Patient-Stated? Author Blood Pressure < 140/90 Blood Pressure 136/76( 025 9:33 AM EST) Lane Kiran, PharmD documented as of this encounter Procedures Procedure Name Priority Date/Time Associated Diagnosis Comments BI MAMMOGRAM SCREENING TOMOSYNTHESIS BILATERAL Routine 10/06/2023 10:24 AM EDT documented in this encounter Results * BI Mammogram Screening Tomosynthesis Bilateral (10/06/2023 10:24 AM EDT) Anatomical Region Laterality Modality Breast Bilateral Mammography 10/06/2023 10:2 4 AM EDT Narrative 11/02/2023 12:05 PM EDT ? [facility] ? [address] ?[place] [address] ? Mammography Report ? Signed ? Patient: Rasta,Khushbu ?MR#: [id number] ?? [id number] ? : 1965 ?Acct:[id number] ? Age/Sex: 58 / F ?ADM Date: 04/30/24 ? Loc: HO.MAMMO ? Attending Dr: Jade Ortega MD ? Ordering Physician: Jade Ortega MD ?Results: 1Negative ? Date of Service: 10/06/23 ?Follow Up: 1 Year From Orig ?? inal Mammogram ? Procedure(s): MM tomosynthesis screening BI ?? Accession Number(s): [id number] ? cc: Jade Ortega MD ? EXAMINATION: [...] by Sally Myers MD in OV> ? 05/27/24 1202 ? DD/ 1024 ? TD/TT: ? Radiation Oncology Nurse: ? Procedure Note Donotuseinterpreter, Image - 11/02/2023 [facility] [address] [place] [address] Mammography Report Signed Patient: Khushbu MagdalenoMR#: [id number] : 1965Acct:[id number] Age/Sex: 58 / FADM Date: 10/06/23 Loc: [facility] Attending Dr: Jade Ortega MD Ordering Physician: Jade Ortega MDResults: 1Negative Date of Service: 10/06/23Follow Up: 1 Year From Orig inal Mammogram Procedure(s): MM tomosynthesis screening BI Accession Number(s): [id number] cc: Jade Ortega MD EXAMINATION: MM SCREENING [...] in OV> 11/02/23 1202 DD/ 1024 TD/TT: Radiation Oncology Nurse: Jade Ortega MD IMG BI PROCEDURES Final Result documented in this encounter Visit Diagnoses Not on filedocumented in this encounter Additional Health Concerns Assessment Noted Time PHQ-9 Depression Total Score: 0 06/16/19 24 3:18 PM EST documented as of this encounter Care Teams Mail Sorting Supervisor Relationship Specialty Start Date End Date Jade Ortega MD [address] [place] [address] PCP - General Family Medicine 05/20/12 Lane Severino, MaddyD [address] [place] [address] Pharmacist Internal Medicine 07/01/22 documented as of this encounter
== END 2024-10-11 09:56 | disposition home or self-care (01) ==
LOC: HO.MAMMO 09:55
PROVIDERS: PCP Family Medicine; Visit Provider Family Medicine
DX: Z12.31 Encounter for screening mammogram for malignant neoplasm of breast (principal)
CPT/HCPCS: 77063; 77067

== ENCOUNTER → 2024-10-11 10:15 | Outpatient (BNV) | payer MEDICAID, SELFPAY | PROVIDERS: PCP Family Medicine; Visit Provider Internal Medicine | DX: Z12.31 Encounter for screening mammogram for malignant neoplasm of breast (principal) | CPT/HCPCS: 77063; 77067 ==

== ENCOUNTER 2024-10-19 09:07 | Outpatient (REF) | payer MEDICAID, SELFPAY ==
--- OUTSIDE RECORDS SUMMARY | 2024-10-19 09:32 | XMS_ITS | Clinical Summary ---
Author Organization [facility] Address [address] [place] [address] Care Team Providers Care Automobile Appraiser Name Role Phone Unavailable Primary Care Provider [...] 2009 Imm-Zoster, Recombinant (1 of 2) 2014 [id number] ( season) 2024 10/10/2020, 09/12/2020 Imm-Influenza (#1) [...] Vaginal Pap Discontinued Vulvoscopy Discontinued [facility]
[2024-10-19 11:27] LABS: Alanine Aminotransferase 17 U/L (0-31); Albumin Level 4.2 g/dL (3.5-5.0); Alkaline Phosphatase 57 U/L (39-117); Anion Gap 15 (12-20); Aspartate Amino Transferase 20 U/L (5-31); Bilirubin Direct 0.1 mg/dL (0.0-0.5); Bilirubin Total 0.5 mg/dL (0.0-1.0); Blood Urea Nitrogen 11 mg/dL (9-16); Calcium 8.8 mg/dL (8.4-10.2); Carbon Dioxide 26 mmol/L (22-29); Chloride 105 mmol/L (96-108); Cholesterol 182 mg/dL (<200); Estimated Glomerular Filt Rate > 60; Glucose Random 136 mg/dL (60-115); HDL Cholesterol 45 mg/dL (>40); LDL Cholesterol Calculated 106 mg/dL (<100); Potassium 3.8 mmol/L (3.3-5.1); Sodium 142 mmol/L (135-145); Total Protein 7.4 g/dL (6.5-8.0); Triglycerides 156 mg/dL (<150)
[2024-10-19 11:59] LABS: Reflex LDLD? No
[2024-10-19 12:20] LABS: Uric Acid 5.4 mg/dL (2.4-5.7)
== END 2024-10-19 09:08 | disposition home or self-care (01) ==
LOC: HO.HHCL 09:07
PROVIDERS: Visit Provider Family Medicine
DX: I10 Essential (primary) hypertension (principal); E79.0 Hyperuricemia without signs of inflammatory arthritis and tophaceous disease; E78.5 Hyperlipidemia, unspecified
CPT/HCPCS: 36415; 80053; 80061; 82248; 84550

== ENCOUNTER 2025-01-23 14:36 | Outpatient (REF) | payer MEDICAID, SELFPAY ==
--- NOTE | ~2025-01-23 | XR_ITS ---
EXAMINATION: XR SHOULDER, RIGHT CLINICAL INFORMATION: right shoulder pain COMPARISON: None available. TECHNIQUE: AP external rotation, Grashey, scapular Y, and axillary views of the right shoulder. FINDINGS: No acute cortical disruption or malalignment. 2 mm calcification at the supraspinatus tendon insertion. No lytic or blastic lesions. XR/XR shoulder RT min 2V IMPRESSION: Questionable calcific tendinosis/tendinopathy, supraspinatus. Electronically signed by: Benedicto Huntley MD 01/23/2025 03:47 PM EDT
--- NOTE | ~2025-01-23 | XR_ITS ---
EXAMINATION: XR SHOULDER, LEFT CLINICAL INFORMATION: shoulder pain. Right-handed. NO injury COMPARISON: None available. TECHNIQUE: AP external rotation, Grashey, scapular Y, and axillary views of the left shoulder. FINDINGS: No acute cortical disruption or malalignment. No lytic or blastic lesions. Preservation of the joint spaces. XR/XR shoulder LT min 2V IMPRESSION: Normal left shoulder x-ray. Electronically signed by: Benedicto Huntley MD 01/23/2025 03:46 PM EDT
--- OUTSIDE RECORDS SUMMARY | 2025-01-23 15:20 | XMS_ITS | Clinical Summary ---
Author Organization [facility] Address [address] [place] [address] Care Team Providers Care Tube Mill Operator Name Role Phone Unavailable Primary Care [...] 2009 Imm-Zoster, Recombinant (1 of 2) 2014 Imm-Pneumococcal 50+ (2 of 2 - PCV) 08/25/2015 08/24/2014 [id number] (3 - season) 2024 10/10/2020, 09/12/2020 Alcohol and Drug Screen 06/08/2024 Depression Annual Screen 06/08/2024 Imm-DTaP/Tdap/Td (2 - Td or Tdap) 08/24/2024 08/24/2014, 08/12/2006, 04/20/1995 Imm-Influenza (#1) 2025 03/22/2020, 1 , 04/15/2018, Additional history exists Cervical Ablation/Cold-Knife Conization Discontinued Cervical Cryotherapy Discontinued Colposcopy Discontinued Endometrial Biopsy Discontinued Excision/Leep Discontinued HPV Genotyping Discontinued Imm-Hepatitis B Aged Out No longer el igible based on patient's age to complete this topic Vaginal Pap Discontinued Vulvoscopy Discontinued Insurance C3 [facility]
== END 2025-01-23 14:37 | disposition home or self-care (01) ==
LOC: HO.HHCX 14:36
PROVIDERS: PCP Family Medicine; Visit Provider Family Medicine
DX: M25.512 Pain in left shoulder (principal); M25.511 Pain in right shoulder; G89.29 Other chronic pain
CPT/HCPCS: 73030

== ENCOUNTER → 2025-01-23 14:45 | Outpatient (BNV) | payer MEDICAID, SELFPAY | PROVIDERS: PCP Family Medicine; Visit Provider Radiology Diagnostic Radiology | DX: M25.512 Pain in left shoulder (principal); M75.31 Calcific tendinitis of right shoulder | CPT/HCPCS: 73030 ==